=== PATIENT | male | born 1960 | race Caucasian/White ===

== ENCOUNTER 2018-04-27 11:43 | Outpatient (REF) | payer OTHER, SELFPAY ==
[2018-04-27 22:12] LABS: Cholesterol 217 mg/dL (50-200); HDL Cholesterol 74 mg/dL (40-60); LDL CHOLESTEROL 129 mg/dL (<100); Triglyceride 75 mg/dL (30-150)
== END 2018-04-27 12:03 ==
LOC: NCHCN 11:43
PROVIDERS: Registered Nurse; PCP Nurse Practitioner; Visit Provider Nurse Practitioner
DX: Z00.00 Encounter for general adult medical examination without abnormal findings (principal); Z13.220 Encounter for screening for lipoid disorders
CPT/HCPCS: 80061; 83721